=== PATIENT | male | born 1975 | race Caucasian/White ===

== ENCOUNTER 2018-03-08 11:52 | Emergency (ER) | payer BC ==
[~2018-03-08] VITALS: Ht 177.8 cm; Wt 72.6 kg
[2018-03-08] MEDS ORDERED: PRINIVIL20 MG PO (12:03)
[2018-03-08] MEDS ORDERED: NOVOLOG100 UNIT/1 SUBQ (12:03)
[2018-03-08 12:32] LABS: ABSOLUTE EOSINOPHILS 0.1 thou/uL (0.0-0.7); ABSOLUTE LYMPHOCYTES 0.9 thou/uL (0.8-5.3); ABSOLUTE MONOCYTES 0.6 thou/uL (0.0-1.2); ABSOLUTE NEUTROPHILS 6.3 thou/uL (1.6-8.1); BASOPHILS 0.4 %; HEMATOCRIT 45.7 % (42.0-52.0); HEMOGLOBIN 15.6 gm/dL (14.0-18.0); LYMPHOCYTES 11.4 %; MCH 35.1 pg (26.0-34.0); MCHC 34.2 g/dL (28.0-37.0); MCV 102.7 fL (80.0-100.0); MPV 7.5 fl. (7.2-11.1); NUCLEATED RBCS 0 /100WBC; PLATELET COUNT* 280 thou/uL (150-400); POLYS 79.2 %; RBC 4.45 mil/uL (4.50-6.00); RDW-CV 13.1 % (10.5-14.5); WBC 7.9 thou/uL (4.0-11.0)
[2018-03-08 12:47] LABS: CALCIUM 9.1 mg/dL (8.5-10.1); CREATININE 0.8 mg/dL (0.6-1.3); POTASSIUM 3.9 mmol/L (3.5-5.1)
[2018-03-08 12:51] LABS: ALBUMIN 3.9 g/dL (3.4-5.0); TOTAL BILIRUBIN 0.5 mg/dL (<0.1-1.0); TOTAL PROTEIN 7.2 g/dL (6.4-8.2)
[2018-03-08] MEDS ORDERED: DULOXETINE HCL20 MG PO (13:04)
[2018-03-08] MEDS ORDERED: NORCO 5-325 TA1 EACH PO (13:40)
[2018-03-08] MEDS ORDERED: IBUPROFEN 800800 M1 PO (13:40)
[2018-03-08 14:11] VITALS: BP 123/96
== END 2018-03-08 14:11 | disposition home or self-care (01) ==
LOC: M.ERS 11:52
PROVIDERS: Physician Assistant
DX: S62.292A Other fracture of first metacarpal bone, left hand, initial encounter for closed fracture (principal); S20.212A Contusion of left front wall of thorax, initial encounter; R51 Headache; M54.2 Cervicalgia; E10.9 Type 1 diabetes mellitus without complications; V49.69XA Unspecified car occupant injured in collision with other motor vehicles in traffic accident, initial encounter; Y93.89 Activity, other specified; Y92.89 Other specified places as the place of occurrence of the external cause; Y99.8 Other external cause status